=== PATIENT | female | born 2000 | race Caucasian/White ===

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

== ENCOUNTER 2021-04-29 09:15 | Emergency (ER) | payer OTHER, SELFPAY ==
[2021-04-29 10:01] VITALS: BP 104/64; PULSE 85; RESP 14; TEMP 36.9; O2SAT 100
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
== END 2021-04-29 10:45 | disposition home or self-care (01) ==
PROVIDERS: Emergency Provider Nurse Practitioner
DX: S39.012A Strain of muscle, fascia and tendon of lower back, initial encounter (principal); S16.1XXA Strain of muscle, fascia and tendon at neck level, initial encounter; V49.40XA Driver injured in collision with unspecified motor vehicles in traffic accident, initial encounter; K21.9 Gastro-esophageal reflux disease without esophagitis; F41.9 Anxiety disorder, unspecified; F32.A Depression, unspecified
CPT/HCPCS: 99213; G0463

== ENCOUNTER 2021-08-22 13:03 | Emergency (ER) | payer OTHER, SELFPAY ==
[2021-08-22 13:18] VITALS: BP 101/62; PULSE 89; RESP 16; TEMP 37.2; O2SAT 100
--- NOTE | 2021-08-22 13:56 | ED.URI ---
HPI - URI/Sore Throat General Chief Complaint: Upper Respiratory Infection Stated Complaint: Sore Throat/Body Ache Source: patient, RN notes reviewed and old records reviewed Mode of arrival: ambulatory Limitations: no limitations History of Present Illness HPI Narrative: 21-year-old female who presents to [facility] with complaints of 2 day history of sore throat , body aches, chills and lingering cough for one month. Patient reports that she was given Flagyl recently for yeast infection and she has pain redness and patchy white spots to her tongue and the back of her throat. Patient has been COVID vaccinated an has Flu shot, she reports that she also has had COVID in July 2019. she works in a day care.Patient denies any fevers, chills or sweats, no ear pain or any nasal congestion or drainage. MD elicited complaint: sore throat and other (chills and body aches) Treatments prior to arrival: other Related Data Home Medications Medication Instructions Recorded Confirmed escitalopram oxalate 20 mg PO DAILY 08/22/21 08/22/21 famotidine 20 mg PO DAILY 08/22/21 08/22/21 metronidazole 500 mg PO Q12H 08/22/21 08/22/21 quetiapine 25 mg PO HS 08/22/21 08/22/21 Allergies Allergy/AdvReac Type Severity Reaction Status Date / Time No Known Allergies Allergy Verified 08/22/21 13:26 Review of Systems Review of Systems: CONSTITUTIONAL: Denies fever, chills, or sweats. EYES: Denies visual changes, redness, or discharge. ENT: Denies rhinorrhea, congestion,positive for sore throat, no otalgia. CARDIOVASCULAR: Denies chest pain, palpitations, or edema. RESPIRATORY: Positive for lingering cough denies dyspnea. GASTROINTESTINAL: Denies abdominal pain, nausea, vomiting, or diarrhea. GENITOURINARY: Denies dysuria or hematuria. SKIN: Denies rash or itching. MUSCULOSKELETAL: Denies back pain, joint pain, positive for body aches NEUROLOGIC: Denies headache, numbness, or weakness. PSYCHIATRIC: Positive for history of anxiety or depression. All systems reviewed & are unremarkable except as noted in HPI and below PMFSH Past Medical History Medical History (Updated 08/23/21 @ 16:14 by Sugey Ross NP) Anxiety and depression Bipolar 1 disorder GERD (gastroesophageal reflux disease) Social History Social History (Updated 08/23/21 @ 16:15 by Sugey Ross NP) Smoking status: Never smoker Alcohol intake: never Substance use type: marijuana Living arrangements: with family Gender identity (if verbalized by the patient): Female Comments At time of signature, agree with nursing past medical, surgical, social and family history. There is no relevant family history pertinent to the presenting complaint Exam Narrative: GENERAL: Well-appearing, well-nourished, and in no acute distress. HEAD: Normocephalic, atraumatic. EYES: PERRLA and EOMI. ENT: Nares clear, no rhinorrhea or epistaxis. Mucous membranes moist.TM's normal with good light reflex, throat red with no tonsil swelling, white patches noted on tongue with tongue red and painful swallowing verbalized. NECK: Supple. no lymphadenopathy CHEST: Clear to auscultation. No respiratory distress.SAO2 100% on room air reports lingering cough HEART: Regular rate and rhythm. No murmur heard. Normal peripheral pulses. ABDOMEN: Soft, nontender, nondistended, normal active bowel sounds. EXTREMITIES: Normal range of motion. No edema. SKIN: Warm, dry, no rash. NEURO: No focal deficits. Alert and oriented x3. Course Course Level of Care: Express Care Visit Vital Signs Vital signs: Vital Signs Temperature 37.2 C 08/22/21 13:18 Pulse Rate 89 08/22/21 13:18 Respiratory Rate 16 08/22/21 13:18 Blood Pressure 101/62 08/22/21 13:18 Pulse Oximetry 100 08/22/21 13:18 Temperature 37.2 C 08/22/21 13:18 Pulse Rate 89 08/22/21 13:18 Respiratory Rate 16 08/22/21 13:18 Blood Pressure 101/62 08/22/21 13:18 Pulse Oximetry 100 08/22/21 13:18 [facility] - URI/
== END 2021-08-22 14:21 | disposition home or self-care (01) ==
PROVIDERS: Emergency Provider Registered Nurse; PCP Internal Medicine
DX: B37.0 Candidal stomatitis (principal)
CPT/HCPCS: 87081; 87804; 87880; 99213; G0463

== ENCOUNTER 2022-04-07 17:53 | Emergency (ER) | payer OTHER, SELFPAY ==
[2022-04-07 18:04] VITALS: BP 123/62; PULSE 120; RESP 16; TEMP 39.3; O2SAT 99
--- NOTE | 2022-04-07 18:56 | ED.GENADULT ---
HPI - General Adult General Chief complaint: Upper Respiratory Infection Stated complaint: cough,runny nose,nausea Source: patient Mode of arrival: ambulatory Limitations: no limitations History of Present Illness HPI narrative: Patient presents for evaluation of sick symptoms for last two days. Symptoms include fever, chills, cough, sore throat, body aches, headache, fatigue, nausea, one episode of vomiting. She denies any diarrhea or shortness of breath. Her roommate currently has similar symptoms. She does not smoke. She has had COVID in the past. She tylenol prior to coming in. Related Data Home Medications Medication Instructions Recorded Confirmed escitalopram oxalate 20 mg tablet 20 mg PO DAILY 08/22/21 08/22/21 famotidine 20 mg tablet 20 mg PO DAILY 08/22/21 08/22/21 quetiapine 25 mg tablet 25 mg PO HS 08/22/21 08/22/21 lamotrigine 100 mg tablet mg 04/07/22 Allergies Allergy/AdvReac Type Severity Reaction Status Date / Time No Known Allergies Allergy Verified 08/22/21 13:26 Review of Systems Review of Systems: CONSTITUTIONAL: Reports fever, fatigue and chills. EYES: Denies visual changes, redness, or discharge. ENT: Reports sore throat. Denies otalgia CARDIOVASCULAR: Denies chest pain, palpitations, or edema. RESPIRATORY: Reports cough. Denies SOB GASTROINTESTINAL: Reports nausea and one episode of vomiting. GENITOURINARY: Denies dysuria or hematuria. SKIN: Denies rash or itching. MUSCULOSKELETAL: Reports generalized body aches. NEUROLOGIC: Reports headache. Denies numbness, dizziness, or weakness. PSYCHIATRIC: Denies anxiety or depression. [facility] Past Medical History Medical History (Updated 04/07/22 @ 19:02 by MONIQUE Nielson, DENILSON) Anxiety and depression Bipolar 1 disorder GERD (gastroesophageal reflux disease) Surgical History Surgical History No pertinent past surgical history Family History Family History Mother Family history non-contributory Social History Social History Smoking status: Never smoker Alcohol intake: never Substance use type: marijuana Gender identity (if verbalized by the patient): Female Exam Narrative: GENERAL: Well-appearing, well-nourished, and in no acute distress. HEAD: Normocephalic, atraumatic. EYES: PERRLA and EOMI. ENT: Nares clear, no rhinorrhea or epistaxis. Mucous membranes moist. Oropharynx without tonsillar hypertrophy exudate or other lesions. Bilateral TMs pearly tolliver nonbulging NECK: Supple. No adenopathy or masses. No carotid bruits or JVD CHEST: Clear to auscultation. Cough present on exam. No respiratory distress. No wheezes rales or rhonchi HEART: Regular rate and rhythm. No murmur heard. Normal peripheral pulses. ABDOMEN: Soft, nontender, nondistended, normal active bowel sounds. EXTREMITIES: Normal range of motion. No edema. SKIN: Warm, dry, no rash. NEURO: No focal deficits. Alert and oriented x3. PSYCH: Normal mood and affect. Course Course Emergency Course: This is a 22-year-old that presented for evaluation of sick symptoms. Influenza a was positive. Her it was elevated on arrival but was febrile. On my exam heart rate normalized. Given tamiflu script. Increase hydration. OTC meds for symptom management. Follow up with primary. Go to ER for worsening symptoms. Pt in agreement with plan of care. Level of Care: Express Care Visit Vital Signs Vital signs: Vital Signs Temperature 39.3 C H 04/07/22 18:04 Pulse Rate 120 H 04/07/22 18:04 Respiratory Rate 16 04/07/22 18:04 Blood Pressure 123/62 04/07/22 18:04 Pulse Oximetry 99 04/07/22 18:04 Oxygen Delivery Room Air 04/07/22 18:04 Temperature 39.3 C H 04/07/22 18:04 Pulse Rate 120 H 04/07/22 18:04 Respiratory Rate 16 04/07/22 18:04 Blood Press
== END 2022-04-07 19:02 | disposition home or self-care (01) ==
PROVIDERS: Emergency Provider Nurse Practitioner; PCP Internal Medicine
DX: J10.1 Influenza due to other identified influenza virus with other respiratory manifestations (principal); K21.9 Gastro-esophageal reflux disease without esophagitis; F41.9 Anxiety disorder, unspecified
CPT/HCPCS: 87804; 99213; G0463

== ENCOUNTER 2023-01-07 17:00 | Emergency (ER) | payer OTHER, SELFPAY ==
--- NOTE | 2023-01-07 17:02 | ED.DENTAL ---
HPI - Dental/Oral General Chief complaint: Upper Respiratory Infection Stated complaint: poss thrush Source: patient and RN notes reviewed Mode of arrival: ambulatory Limitations: no limitations History of Present Illness HPI Narrative: Patient is a 22-year-old female who presents to the [facility] with complaints mouth pain and sore throat for the past several months. Patient states that her symptoms are similar to that she experienced when she had oral thrush. Patient states that her mouth and throat pain seemed to be worse when she takes her daily medication. Denies recent fevers. Related Data Home Medications Medication Instructions Recorded Confirmed famotidine 20 mg tablet 20 mg PO BID 08/22/21 01/07/23 lamotrigine 100 mg tablet 100 mg PO BID 04/07/22 01/07/23 medroxyprogesterone 150 mg/mL 150 mg IM [id number] 01/07/23 01/07/23 intramuscular suspension quetiapine 100 mg tablet 100 mg PO QHS 01/07/23 01/07/23 Allergies Allergy/AdvReac Type Severity Reaction Status Date / Time No Known Allergies Allergy Verified 01/07/23 17:02 Review of Systems Review of Systems: CONSTITUTIONAL: Denies fever, chills, or sweats. EYES: Denies visual changes, redness, or discharge. ENT: Denies otalgia. Reports mouth pain and sore throat. CARDIOVASCULAR: Denies chest pain, palpitations, or edema. RESPIRATORY: Denies cough or dyspnea. GASTROINTESTINAL: Denies abdominal pain, nausea, vomiting, or diarrhea. GENITOURINARY: Denies dysuria or hematuria. SKIN: Denies rash or itching. MUSCULOSKELETAL: Denies back pain, joint pain, or myalgia. NEUROLOGIC: Denies headache, numbness, or weakness. Pertinent positives per HPI. [facility] Past Medical History Medical History Anxiety and depression Bipolar 1 disorder GERD (gastroesophageal reflux disease) Surgical History Surgical History No pertinent past surgical history Family History Family History Mother Family history non-contributory Social History Social History Smoking status: Never smoker Alcohol intake: never Substance use type: marijuana Living arrangements: with roommate(s) Gender identity (if verbalized by the patient): Female Comments At the time of my signature, I reviewed and agree with the nursing past medical, surgical, social, and family history. There is no relevant family history pertinent to the patient complaint. Exam Narrative: GENERAL: This is a well-nourished, well-developed patient, in no apparent distress. HEAD: normocephalic, atraumatic. EYES: Sclera clear/white. Vision is grossly intact. EARS: External ears normal. Hearing grossly intact. NOSE: External nose normal with no obvious nasal discharge, nares without redness, no rhinorrhea. THROAT: Mucous membranes moist. Oropharyngeal erythema without exudate or ulceration. NECK: Neck supple, non-tender without lymphadenopathy, masses or thyromegaly. CARDIOVASCULAR: Regular rate and rhythm without murmurs, gallops, or rubs. RESPIRATORY: Clear to auscultation. Breath sounds equal bilaterally. No wheezes, rales, or rhonchi. GASTROINTESTINAL: Abdomen soft, non-tender, nondistended. Bowel sounds are active. No hepato-splenomegaly, or palpable masses. No guarding. SKIN: warm, intact with no suspicious lesions or rash, good texture and turgor. NEURO: awake, alert, and oriented to person, place and time. There were no obvious focal neurologic abnormalities. Course Course Level of Care: Express Care Visit Vital Signs Vital signs: Vital Signs Temperature 99.5 F 01/07/23 17:04 Pulse Rate 91 01/07/23 17:04 Respiratory Rate 20 01/07/23 17:04 Blood Pressure 111/83 01/07/23 17:04 Pulse Oximetry 100 01/07/23 17:04 Oxygen Delivery Room Air
[2023-01-07 17:04] VITALS: BP 111/83; PULSE 91; RESP 20; TEMP 37.5; O2SAT 100
[2023-01-07 17:09] VITALS: BP 111/83; PULSE 91; RESP 20; TEMP 37.5; O2SAT 100
== END 2023-01-07 17:20 | disposition home or self-care (01) ==
PROVIDERS: Emergency Provider Nurse Practitioner; PCP Internal Medicine
DX: J02.0 Streptococcal pharyngitis (principal); K21.9 Gastro-esophageal reflux disease without esophagitis; F31.9 Bipolar disorder, unspecified; F12.90 Cannabis use, unspecified, uncomplicated
CPT/HCPCS: 87880; 99213; G0463